=== PATIENT | female | born 1985 | race Two or more races ===

== ENCOUNTER 2018-06-01 08:54 | Emergency (ER) | payer MEDICAID ==
[~2018-06-01] VITALS: Ht 162.6 cm; Wt 62.6 kg
[2018-06-01] MEDS ORDERED: SODIUM CHLORIDE 0.9% 1,000 ML IV ONE (09:20)
[2018-06-01 09:25] VITALS: BP 147/78
[2018-06-01] MEDS ORDERED: KETOROLAC TROMETH 30 MG/ML 1ML VIAL IV ONE (09:30)
[2018-06-01] MEDS ORDERED: ONDANSETRON HCL 4 MG/2 ML VIAL IV ONE (09:30)
[2018-06-01 09:36] LABS: Urine Bacteria NONE SEEN /hpf (None Seen); Urine Blood 2+ /uL (Negative); Urine Specific Gravity 1.017 (1.001-1.035); Urine WBC <1 /hpf (0 - 5)
[2018-06-01 09:58] LABS: Basophils # (auto) 0 uL; Eosinophils # (auto) 0 uL; Eosinophils % (auto) 0.1 % (0.0-7.0); Hemoglobin 10.8 g/dL (12.2-16.2); Monocytes # (auto) 0.2 uL; Monocytes % (auto) 2.8 % (0.0-12.0); Platelet Count (auto) 290 10^3/uL (140-450); White Blood Cell 7.6 10^3/uL (4.4-10.8)
[2018-06-01 10:01] LABS: Basophils % (auto) 0.4 % (0.0-2.0); Hematocrit 33.2 % (36.0-46.0); Lymphocytes % (auto) 13.1 % (10.0-50.0); Mean Corpuscular Hemoglobin 25.5 pg (28.0-32.0); Mean Corpuscular Hgb Conc. 32.5 g/dL (32.0-36.0); Mean Corpuscular Volume 78.3 fL (80.0-100.0); Neutrophils # (auto) 6.4 uL; Neutrophils % (auto) 83.6 % (37.0-80.0); Red Blood Cells 4.24 10^6/uL (4.0-5.20)
[2018-06-01 10:16] LABS: Albumin 3.6 g/dL (3.4-5.0); BUN/Creatinine Ratio 11.6; Bilirubin, Total 0.5 mg/dL (0.2-1.0); Calcium 8.2 mg/dL (8.5-10.1); Total Protein 8.6 g/dL (6.4-8.2)
[2018-06-01] MEDS ORDERED: POTASSIUM EFFERVESENT TAB 25 MEQ PO ONE (10:45)
== END 2018-06-01 12:17 | disposition home or self-care (01) ==
LOC: ER 08:54
DX: K52.9 Noninfective gastroenteritis and colitis, unspecified (principal); E87.6 Hypokalemia
CPT/HCPCS: 36415; 80053; 81001; 81025; 82150; 83690; 85025; 94761; 96361; 96374; 96375; 99284; J1885; J2405

== ENCOUNTER 2018-09-25 23:24 | Emergency (ER) | payer MEDICAID ==
[~2018-09-25] VITALS: Ht 162.6 cm; Wt 81.6 kg
[2018-09-25 23:43] VITALS: BP 120/4
[2018-09-25] MEDS ORDERED: IBUPROFEN 800 MG TAB PO ONE (23:45)
[2018-09-26] MEDS ORDERED: cefTRIAXone SOD 1,000 MG VL IM ONE (02:45)
[2018-09-26] MEDS ORDERED: KETOROLAC TROMETH 60MG/2ML VIAL IM ONE (02:45)
== END 2018-09-26 04:30 | disposition home or self-care (01) ==
LOC: ER 23:29
DX: H61.21 Impacted cerumen, right ear (principal); K04.7 Periapical abscess without sinus
CPT/HCPCS: 69209; 96372; 99283; J0696; J1885

== ENCOUNTER 2020-06-24 07:39 | Inpatient (IN) | payer MEDICAID ==
[2020-06-18 11:25] LABS: Urine Bacteria FEW /hpf (None Seen); Urine Blood 1+ /uL (Negative); Urine Mucus FEW (None Seen); Urine Specific Gravity 1.026 (1.001-1.035); Urine WBC 1 /hpf (0 - 5)
[2020-06-18 11:26] LABS: Basophils # (auto) 0.1 10 ^3/uL (0-0.2); Eosinophils # (auto) 0.3 10 ^3/uL (0-0.8); Eosinophils % (auto) 6.1 % (0.0-7.0); Hematocrit 39.8 % (36.0-46.0); Hemoglobin 13.1 g/dL (12.2-16.2); Lymphocytes # (auto) 2.1 10 ^3/uL (0.4-5.4); Lymphocytes % (auto) 39.1 % (10.0-50.0); Mean Corpuscular Hemoglobin 30.1 pg (28.0-32.0); Mean Corpuscular Volume 91.3 fL (80.0-100.0); Monocytes # (auto) 0.4 10 ^3/uL (0-1.3); Monocytes % (auto) 8.2 % (0.0-12.0); Neutrophils # (auto) 2.5 10 ^3/uL (1.6-8.6); Neutrophils % (auto) 45.6 % (37.0-80.0); Platelet Count (auto) 253 10^3/uL (140-450); Red Blood Cells 4.36 10^6/uL (4.0-5.20); Red Cell Distribution Width 13.9 % (11.8-14.3); White Blood Cell 5.4 10^3/uL (4.4-10.8)
[2020-06-18 11:36] LABS: INR 0.94 (0.9-1.15); Partial Thromboplastin Time 26.4 sec (23.0-31.2)
[2020-06-18 11:48] LABS: Albumin 3.4 g/dL (3.4-5.0); Potassium 3.8 mmol/L (3.5-5.1)
[2020-06-18 11:50] LABS: BUN/Creatinine Ratio 12.5
[2020-06-18 11:52] LABS: Bilirubin, Total 0.6 mg/dL (0.2-1.0); Total Protein 7.9 g/dL (6.4-8.2)
[~2020-06-24] VITALS: Ht 162.6 cm; Wt 79.0 kg
[~2020-06-24 07:39] MED LIST: OMEP20TA PO; ONDA-144 PO
[2020-06-24] MEDS ORDERED: LIDOCAINE 1% (LOCAL ANESTH.) PF 5ml SDV ONE (08:51)
[2020-06-24] MEDS ORDERED: SUCCINYLCHOLINE CHLORIDE 20 MG/ML 10ML VIAL IV ONE (08:51)
[2020-06-24] MEDS ORDERED: MIDAZOLAM HCL 1MG/1ML-2 ML VIAL ONE (08:55)
[2020-06-24] MEDS ORDERED: ROCURONIUM 10MG/ML 10ML VIAL IV ONE (08:56)
[2020-06-24] MEDS ORDERED: POVIDONE IODINE 10 % TOPICAL OINT 30GM TOP ONE (08:57)
[2020-06-24] MEDS ORDERED: ceFAZolin 1GM/50ML 50 ML IV ONE (09:01)
[2020-06-24] MEDS ORDERED: METOCLOPRAMIDE HCL 5MG/ml INJ 2ml VIAL ONE (09:06)
[2020-06-24] MEDS ORDERED: PROPOFOL 10 MG/ML 20 ML IV ONE (09:06)
[2020-06-24] MEDS ORDERED: fentaNYL CITRATE 100 MCG/2 ML VL ONE (09:18)
[2020-06-24] MEDS ORDERED: HYDROmorphone HCL 2 MG/ML VL IV PRN ×3 (09:30→10:00)
[2020-06-24] MEDS ORDERED: ONDANSETRON HCL 4 MG/2 ML VIAL IV PRN ×2 (09:30→12:30)
[2020-06-24] MEDS ORDERED: NALOXONE HCL 0.4 MG/ML VIAL IV PRN (09:30)
[2020-06-24] MEDS ORDERED: KETOROLAC TROMETH 30 MG/ML 1ML VIAL ONE (09:45)
[2020-06-24] MEDS ORDERED: GLYCOPYRROLATE 0.2 MG/ML 1ML VIAL ONE (09:46)
[2020-06-24] MEDS ORDERED: NEOSTIGMINE 1 MG/ML INJ (10mg/10ML VIAL) ONE (09:47)
[2020-06-24] MEDS ORDERED: FAMOTIDINE (10MG/ML) 2ML VL IV ONE (13:20)
[2020-06-24] MEDS ORDERED: OMEP-263 PO (14:38)
[2020-06-24] MEDS: HYDROmorphone HCL 2 MG/ML VL IV PRN (14:54)
[2020-06-24] MEDS: ceFAZolin 1GM/50ML 50 ML IV SCH ×2 (14:54→22:15)
[2020-06-24 16:27] VITALS: BP 95/63
[2020-06-24 21:14] VITALS: BP 96/61
[2020-06-25 00:46] VITALS: BP 108/59
[2020-06-25] MEDS: HYDROcodone-ACET 5/325MG TAB PO PRN ×2 (00:53→14:21)
[2020-06-25] MEDS: HYDROmorphone HCL 2 MG/ML VL IV PRN (04:07)
[2020-06-25 05:30] VITALS: BP 98/59
[2020-06-25 05:32] LABS: BUN/Creatinine Ratio 9.2; Bilirubin, Total 0.8 mg/dL (0.2-1.0); Calcium 8.2 mg/dL (8.5-10.1); Potassium 3.8 mmol/L (3.5-5.1); Total Protein 6.9 g/dL (6.4-8.2)
[2020-06-25] MEDS: ceFAZolin 1GM/50ML 50 ML IV SCH ×2 (05:57→14:21)
[2020-06-25 06:53] LABS: Basophils # (auto) 0 10 ^3/uL (0-0.2); Basophils % (auto) 0.6 % (0.0-2.0); Eosinophils # (auto) 0.3 10 ^3/uL (0-0.8); Eosinophils % (auto) 3.6 % (0.0-7.0); Hemoglobin 11.7 g/dL (12.2-16.2); Lymphocytes # (auto) 2.6 10 ^3/uL (0.4-5.4); Lymphocytes % (auto) 36.7 % (10.0-50.0); Mean Corpuscular Hemoglobin 31.4 pg (28.0-32.0); Mean Corpuscular Hgb Conc. 34.5 g/dL (32.0-36.0); Mean Corpuscular Volume 90.9 fL (80.0-100.0); Monocytes # (auto) 0.6 10 ^3/uL (0-1.3); Monocytes % (auto) 8.5 % (0.0-12.0); Neutrophils # (auto) 3.6 10 ^3/uL (1.6-8.6); Neutrophils % (auto) 50.6 % (37.0-80.0); Nucleated Red Blood Cells % 0.1 %; Platelet Count (auto) 221 10^3/uL (140-450); Red Blood Cells 3.74 10^6/uL (4.0-5.20); Red Cell Distribution Width 14.1 % (11.8-14.3); White Blood Cell 7.2 10^3/uL (4.4-10.8)
[2020-06-25 09:00] VITALS: BP 91/58
[2020-06-25] MEDS ORDERED: HYDROmorphone HCL 2 MG/ML VL IV PRN (09:30)
[2020-06-25] MEDS ORDERED: FAMOTIDINE (10MG/ML) 2ML VL IV SCH (10:00)
[2020-06-25 10:36] VITALS: BP 98/59
[2020-06-25 13:00] VITALS: BP 102/49
[2020-06-25 17:00] VITALS: BP 106/56
== END 2020-06-25 20:45 | disposition home or self-care (01) | DRG 263 ==
LOC: SUR 07:39 → CENTRAL 14:22
PROVIDERS: ADMIT Surgery; ATTEND Internal Medicine
PROC: 3E013GC Introduction of Other Therapeutic Substance into Subcutaneous Tissue, Percutaneous Approach (ICD-10-PCS; 2020-06-24)
PROC: 0FT44ZZ Resection of Gallbladder, Percutaneous Endoscopic Approach (ICD-10-PCS; principal; 2020-06-24 09:01)
DX: K80.10 Calculus of gallbladder with chronic cholecystitis without obstruction (principal); K21.9 Gastro-esophageal reflux disease without esophagitis; Z93.3 Colostomy status; Z20.828 Contact with and (suspected) exposure to other viral communicable diseases
CPT/HCPCS: 36415; 80053; 81001; 84702; 85025; 85610; 85730; 86850; 86900; 86901; G0378; J0330; J0690; J1885; J2250; J2405; J2704; J3490